=== PATIENT | female | born 1945 | race Two or more races ===

== ENCOUNTER 2018-04-27 07:34 | Outpatient (CLI) | payer OTHER | END 2018-04-27 07:44 | disposition home or self-care (01) | LOC: LAB 07:34 | DX: I10 Essential (primary) hypertension (principal); R00.8 Other abnormalities of heart beat ==

== ENCOUNTER 2018-05-24 07:59 | Outpatient (CLI) | payer OTHER | END 2018-05-24 08:31 | disposition home or self-care (01) | LOC: SONOGRAMA 07:59 → MAMO-SONO 08:15 → SONOGRAMA 08:31 | DX: R10.84 Generalized abdominal pain (principal) ==

== ENCOUNTER 2018-06-03 07:52 | Emergency (ER) | payer OTHER ==
[~2018-06-03] VITALS: Ht 157.5 cm; Wt 93.0 kg
== END 2018-06-03 15:02 | disposition designated cancer center or children's hospital (05) ==
LOC: ER 07:52
DX: I44.2 Atrioventricular block, complete (principal); I47.2 Ventricular tachycardia; S01.02XA Laceration with foreign body of scalp, initial encounter; R55 Syncope and collapse; W45.8XXA Other foreign body or object entering through skin, initial encounter; Y93.89 Activity, other specified; Y92.018 Other place in single-family (private) house as the place of occurrence of the external cause; Y99.8 Other external cause status

== ENCOUNTER 2018-06-18 12:33 | Emergency (ER) | payer OTHER ==
[~2018-06-18] VITALS: Ht 165.1 cm; Wt 88.0 kg
[2018-06-18] MEDS ORDERED: NIFE60TA3 PO (12:47)
[2018-06-18] MEDS ORDERED: HYDRALAZINE HCL25 MG PO (12:47)
[2018-06-18] MEDS ORDERED: CATAPRES0.1 MG PO (12:48)
== END 2018-06-18 13:45 | disposition home or self-care (01) ==
LOC: ER 12:33
DX: Z48.02 Encounter for removal of sutures (principal)

== ENCOUNTER 2019-07-16 07:20 | Outpatient (CLI) | payer OTHER ==
[~2019-07-16 07:20] MED LIST: CATAPRES0.1 MG PO; HYDRALAZINE HCL25 MG PO; NIFE60TA3 PO
== END 2019-07-16 07:29 | disposition home or self-care (01) ==
LOC: LAB 07:20
PROVIDERS: ATTEND Ophthalmology
DX: D68.8 Other specified coagulation defects (principal); H25.011 Cortical age-related cataract, right eye; Z98.41 Cataract extraction status, right eye

== ENCOUNTER → 2019-07-18 | Outpatient (CLI) | payer OTHER | END | disposition home or self-care (01) | LOC: LAB 09:32 | PROVIDERS: ATTEND Ophthalmology | DX: Z20.828 Contact with and (suspected) exposure to other viral communicable diseases (principal); Z03.818 Encounter for observation for suspected exposure to other biological agents ruled out ==

== ENCOUNTER 2019-10-23 07:29 | Outpatient (CLI) | payer OTHER | END 2019-10-23 07:36 | disposition home or self-care (01) | LOC: LAB 07:29 | PROVIDERS: ATTEND Internal Medicine | DX: I44.2 Atrioventricular block, complete (principal); Z95.0 Presence of cardiac pacemaker; I10 Essential (primary) hypertension; Z20.828 Contact with and (suspected) exposure to other viral communicable diseases ==

== ENCOUNTER 2020-04-22 | Outpatient (CLI) | payer OTHER | END 2020-04-22 07:57 | disposition home or self-care (01) | LOC: PPH VACUNA | PROVIDERS: ATTEND Emergency Medicine Pediatric Emergency Medicine | DX: Z23 Encounter for immunization (principal) ==

== ENCOUNTER 2020-05-13 11:05 | Outpatient (CLI) | payer OTHER | END 2020-05-13 11:06 | disposition home or self-care (01) | LOC: PPH VACUNA 11:05 | PROVIDERS: ATTEND Emergency Medicine Pediatric Emergency Medicine | DX: Z23 Encounter for immunization (principal) ==

== ENCOUNTER 2020-06-08 06:52 | Outpatient (CLI) | payer OTHER | END 2020-06-08 15:00 | disposition home or self-care (01) | LOC: LAB 06:52 | PROVIDERS: ATTEND Internal Medicine Cardiovascular Disease | DX: E78.5 Hyperlipidemia, unspecified (principal); I10 Essential (primary) hypertension ==

== ENCOUNTER → 2020-11-10 07:09 | Outpatient (CLI) | payer OTHER | END | disposition home or self-care (01) | LOC: LAB 07:09 | PROVIDERS: ATTEND Internal Medicine | DX: R00.2 Palpitations (principal); I10 Essential (primary) hypertension; E55.9 Vitamin D deficiency, unspecified; D68.8 Other specified coagulation defects ==

== ENCOUNTER 2021-05-17 07:10 | Outpatient (CLI) | payer OTHER | END 2021-05-17 07:22 | disposition home or self-care (01) | LOC: LAB 07:10 | PROVIDERS: ATTEND Internal Medicine Hematology & Oncology | DX: D64.9 Anemia, unspecified (principal); L04.2 Acute lymphadenitis of upper limb; I77.6 Arteritis, unspecified; C50.811 Malignant neoplasm of overlapping sites of right female breast; D55.0 Anemia due to glucose-6-phosphate dehydrogenase [G6PD] deficiency ==

== ENCOUNTER 2021-05-30 08:04 | Outpatient (CLI) | payer OTHER | END 2021-05-30 08:07 | disposition home or self-care (01) | LOC: TOM 08:04 | PROVIDERS: ATTEND Internal Medicine Hematology & Oncology | DX: C50.811 Malignant neoplasm of overlapping sites of right female breast (principal); C78.00 Secondary malignant neoplasm of unspecified lung | CPT/HCPCS: 71260; Q9965 ==

== ENCOUNTER 2021-06-16 08:05 | Outpatient (CLI) | payer OTHER | END 2021-06-16 08:08 | disposition home or self-care (01) | LOC: SONOGRAMA 08:05 | PROVIDERS: ATTEND Pathology Anatomic Pathology & Clinical Pathology | DX: C50.811 Malignant neoplasm of overlapping sites of right female breast (principal) ==

== ENCOUNTER 2021-11-01 14:04 | Outpatient (CLI) | payer OTHER | END 2021-11-01 14:11 | disposition home or self-care (01) | LOC: RAD 14:04 | PROVIDERS: ATTEND Physical Medicine & Rehabilitation | DX: M16.11 Unilateral primary osteoarthritis, right hip (principal); M17.11 Unilateral primary osteoarthritis, right knee ==

== ENCOUNTER 2021-12-29 15:00 | Inpatient (IN) | payer OTHER ==
[~2021-12-29] VITALS: Ht 162.6 cm; Wt 72.6 kg
[2022-01-02] MEDS ORDERED: VOLTAREN ARTHRI20 GM (16:01)
== END 2022-01-04 23:10 | disposition home or self-care (01) | DRG 481 ==
LOC: ER 15:00 → MEDI 12-30 18:04
PROVIDERS: Orthopaedic Surgery Sports Medicine; ADMIT Internal Medicine; ATTEND Internal Medicine
PROC: 0QS606Z Reposition Right Upper Femur with Intramedullary Internal Fixation Device, Open Approach (ICD-10-PCS; principal; 2022-01-02 09:15)
DX: M84.451A Pathological fracture, right femur, initial encounter for fracture (principal); I44.2 Atrioventricular block, complete; I11.0 Hypertensive heart disease with heart failure; I50.9 Heart failure, unspecified; Z20.822 Contact with and (suspected) exposure to COVID-19; Z95.0 Presence of cardiac pacemaker

== ENCOUNTER 2022-03-10 10:22 | Outpatient (CLI) | payer OTHER ==
[~2022-03-10 10:22] MED LIST changes: +VOLTAREN ARTHRI20 GM
== END 2022-03-10 10:31 | disposition home or self-care (01) ==
LOC: RAD 10:22
PROVIDERS: ATTEND Orthopaedic Surgery Sports Medicine
DX: M17.11 Unilateral primary osteoarthritis, right knee (principal); S72.114S Nondisplaced fracture of greater trochanter of right femur, sequela